=== PATIENT | male | born 1995 | race Caucasian/White ===

== ENCOUNTER 2021-12-23 22:57 | Emergency (ER) | payer BC, OTHER ==
[~2021-12-23] VITALS: Ht 185.5 cm; Wt 108.8 kg
[~2021-12-23 22:57] MED LIST: SULF1TAB38 PO
[2021-12-23 23:00] VITALS: BP 138/71
[2021-12-23] MEDS ORDERED: diphenhydrAMINE 50 MG/ML INJ (BENADRYL) IM STA (23:21)
--- NOTE | 2021-12-23 23:21 | ED Integumentary General ---
General Chief Complaint: Allergic Reaction Stated Complaint: ALLERGIC REACTION Nursing Triage Note: Pt states that about an hour prior to arrival he started having skin redness and felt like he was having an allergic reaction. He was getting ready for bed and was having some dry cereal. His noticed that his skin was red. No complaints of SOA, difficulty breathing. History of Present Illness Date Seen by Provider: Dec 23, 2021 Time Seen by Provider: 23:15 Initial Comments 26-year-old male presents with concern for allergic reaction. Patient reports that he was having some dry cereal in his noticed that his skin was red. He had redness on his left arm part of his right arm little bit on his neck. He denied any shortness of breath, wheezing, nausea, vomiting or any other systemic complaints. Patient reports that he noticed this about an hour prior to arrival. Upon arrival to the ER his symptoms of pretty much resolved outside of some mild erythema to his neck and he feels like his "neck is burning" patient has no known allergies. No other systemic complaints. Patient is mildly intoxicated admits to drinking at least 15+ beers today. Allergies and Home Medications Allergies Coded Allergies: No Known Drug Allergies (Unverified , 12/23/21) Patient Home Medication List Home Medication List Reviewed: Yes Review of Systems Review of Systems Constitutional: No chills, No diaphoresis, No dizziness, No fever Respiratory: no symptoms reported Cardiovascular: no symptoms reported Gastrointestinal: no symptoms reported Musculoskeletal: no symptoms reported Skin: see HPI Psychiatric/Neurological: No Symptoms Reported Endocrine: No Symptoms Reported Past Tlojgkk-Sencot-Ltddrp Hx Patient Social History Tobacco Use?: Yes Smokeless Tobacco Frequency: Current Everyday User Use of E-Cig and/or Vaping dev: No Substance use?: No Alcohol Use?: Yes Alcohol type: Beer Alcohol Frequency: Couple times a week Pt feels they are or have been: No Physical Exam Vital Signs Vital Signs - First Documented 12/23/21 23:00 Temp 36.6 Pulse 101 Resp 18 B/P (MAP) 138/71 (93) Pulse Ox 100 O2 Delivery Room Air Capillary Refill : Less Than 3 Seconds General Appearance: WD/WN, no apparent distress HEENT: PERRL/EOMI Neck: non-tender, full range of motion, supple Cardiovascular: normal peripheral pulses, regular rate, rhythm, no edema Respiratory: chest non-tender, lungs clear, normal breath sounds Gastrointestinal: non tender, soft Extremities: non-tender, normal inspection, no pedal edema Neurologic/Psychiatric: alert, normal mood/affect, oriented x 3 Skin: other (Minimal redness to the neck but otherwise no notable rash.) Progress/Results/Core Measures Results/Orders My Orders Orders - RALPH VERA DO Diphenhydramine Injection (Benadryl Inje (12/23/21 23:21) Vital Signs/I&O 12/23/21 12/23/21 12/23/21 23:00 23:30 23:45 Temp 36.6 Pulse 101 92 94 Resp 18 19 20 B/P (MAP) 138/71 (93) 117/63 129/64 Pulse Ox 100 100 97 O2 Delivery Room Air Room Air Room Air Blood Pressure Mean: 93 Progress Progress Note : Progress Note Patient was monitored in the ER with no additional complaints or rash. I suspect is likely flushing due to alcohol and not an actual allergy. Patient was stable and discharged Departure Impression Primary Impression: Allergic reaction Qualified Codes: T78.40XA - Allergy, unspecified, initial encounter Disposition: 01 HOME, SELF-CARE Condition: Stable Departure-Patient Inst. Referrals: NO,LOCAL PHYSICIAN (PCP) Primary Care Physician Patient Instructions: Allergic Reaction ED Add. Discharge Instructions: Benadryl 25 to 50 mg every 6-8 hours as needed All discharge instructions reviewed with patient and/or family. Voiced understanding. RALPH VERA DO Dec 23, 2021 23:21
== END 2021-12-23 23:51 | disposition home or self-care (01) ==
LOC: ER FS 22:59
DX: T78.40XA Allergy, unspecified, initial encounter (principal); F17.200 Nicotine dependence, unspecified, uncomplicated; Z28.310 Unvaccinated for COVID-19
CPT/HCPCS: 99284